=== PATIENT | female | born 1960 | race Hispanic/Latino ===

== ENCOUNTER 2017-10-31 19:38 | Emergency (ER) | payer OTHER, SELFPAY ==
[~2017-10-31 19:38] MED LIST: ACET1TAB12 PO; CITA-107 PO; LEVO500T2 PO; LISI40TA4 PO; MIRT15TA6 PO
[2017-10-31] MEDS ORDERED: HYDROCODONE/ACETAMINOPHEN 7.5/325 MG 15 ML UDCUP ONE (20:19)
[2017-10-31 20:33] LABS: BASOPHILS % (AUTO) 0.2 % (0.0-5.0); EOSINOPHILS % (AUTO) 0.8 % (0.0-8.0); HEMATOCRIT 39.3 % (36-48); LYMPHOCYTES % (AUTO) 5.1 % (21.0-51.0); MEAN CORPUSCULAR HEMOGLOBIN 30.9 pg (27.0-33.0); MEAN CORPUSCULAR HGB CONC 35.2 g/dL (32.0-36.0); MEAN CORPUSCULAR VOLUME 87.8 fL (79-99); MONOCYTES % (AUTO) 4.5 % (3.0-13.0); NEUTROPHILS % (AUTO) 89.4 % (40.0-77.0); PLATELET COUNT (AUTO) 293 K/uL (130-400); RED BLOOD CELL COUNT(AUTO) 4.48 MIL/uL (4.00-5.50); RED CELL DISTRIBUTION WIDTH 18.7 % (11.0-15.5); WHITE BLOOD COUNT (AUTO) 6.8 K/uL (4.8-10.8)
[2017-10-31 21:16] LABS: ALBUMIN 3.4 g/dL (3.5-5.0); BILIRUBIN,TOTAL 0.4 mg/dL (0.2-1.0); TOTAL PROTEIN, SERUM 7.4 g/dL (6.0-8.3)
== END 2017-10-31 21:26 | disposition home or self-care (01) ==
LOC: EDH 19:38
DX: R07.89 Other chest pain (principal); R51 Headache; T45.1X5A Adverse effect of antineoplastic and immunosuppressive drugs, initial encounter; R11.0 Nausea; C18.9 Malignant neoplasm of colon, unspecified; I10 Essential (primary) hypertension; Y92.89 Other specified places as the place of occurrence of the external cause
CPT/HCPCS: 36415; 70450; 72125; 80053; 85025

== ENCOUNTER 2018-04-24 11:10 | Emergency (ER) | payer OTHER ==
[2018-04-24] MEDS ORDERED: OXYCODONE/ACETAMIN 5/325MG TAB ONE (11:40)
== END 2018-04-24 13:00 | disposition home or self-care (01) ==
LOC: EDH 11:10
DX: R21 Rash and other nonspecific skin eruption (principal); I10 Essential (primary) hypertension; F41.9 Anxiety disorder, unspecified; Z85.038 Personal history of other malignant neoplasm of large intestine

== ENCOUNTER 2018-06-27 11:55 | Emergency (ER) | payer OTHER ==
[2018-06-27] MEDS ORDERED: ASPIRIN 325 MG TABLET ONE (12:21)
[2018-06-27 12:29] LABS: BASOPHILS % (AUTO) 0.7 % (0.0-5.0); EOSINOPHILS % (AUTO) 1.6 % (0.0-8.0); HEMATOCRIT 39.5 % (36-48); LYMPHOCYTES % (AUTO) 23.6 % (21.0-51.0); MEAN CORPUSCULAR HEMOGLOBIN 28.9 pg (27.0-33.0); MEAN CORPUSCULAR HGB CONC 32.9 g/dL (32.0-36.0); MEAN CORPUSCULAR VOLUME 87.9 fL (79-99); MONOCYTES % (AUTO) 3.4 % (3.0-13.0); NEUTROPHILS % (AUTO) 70.7 % (40.0-77.0); NUCLEATED RED BLOOD CELLS 0.1 % (0.0-0.19); PLATELET COUNT (AUTO) 236 K/uL (130-400); RED CELL DISTRIBUTION WIDTH 19.3 % (11.0-15.5); WHITE BLOOD COUNT (AUTO) 2.8 K/uL (4.8-10.8)
[2018-06-27] MEDS ORDERED: SODIUM CHLORIDE 0.9% 1000ML 1,000 ML IV ONE (12:36)
[2018-06-27 12:39] LABS: INR 0.91 (0.85-1.15); PROTHROMBIN TIME 9.6 SEC (9.6-11.6)
[2018-06-27 13:00] LABS: CREATININE 0.8 mg/dL (0.5-1.5); POTASSIUM 3.8 mmol/L (3.5-5.1)
[2018-06-27 13:05] LABS: ALBUMIN 3.2 g/dL (3.5-5.0); BILIRUBIN,TOTAL 0.4 mg/dL (0.2-1.0); TOTAL PROTEIN, SERUM 7.2 g/dL (6.0-8.3)
[2018-06-27 13:11] LABS: B-TYPE NATRIURETIC PEPTIDE 9 pg/mL (0-100)
[2018-06-27 13:15] LABS: EOSINOPHILS % (MANUAL) 3 % (1-6); LYMPHOCYTES % (MANUAL) 22 % (22-44); MAN.DIFF COMMENT-IMPRESSION MANUAL DIFFERENTIAL; MONOCYTES % (MANUAL) 2 % (2-9); PLATELET MORPHOLOGY COMMENT ADEQUATE; REACTIVE LYMPHOCYTES 1 % (0-0); SEGMENTED NEUTROPHILS % 72 % (40-70)
[2018-06-27] MEDS ORDERED: IOHEXOL-350 75 ML VIAL IV ONE (14:51)
== END 2018-06-27 17:06 | disposition home or self-care (01) ==
LOC: EDH 11:55
DX: R07.89 Other chest pain (principal); I10 Essential (primary) hypertension; F41.9 Anxiety disorder, unspecified; F32.9 Major depressive disorder, single episode, unspecified; Z90.49 Acquired absence of other specified parts of digestive tract
CPT/HCPCS: 36415; 71045; 71275; 80053; 82550; 83880; 84484 ×2; 85025; 85378; 85610; 85730; 93005 ×2; 99284; J7030; Q9967

== ENCOUNTER 2019-10-08 23:56 | Emergency (ER) | payer MEDICARE, OTHER ==
[2019-10-08] MEDS ORDERED: SODIUM CHLORIDE IRRIG SOLUTION 1,000 ML IR ONE (23:57)
[2019-10-09] MEDS ORDERED: ONDANSETRON HCL 4 MG/2 ML VIAL ONE (00:53)
[2019-10-09 01:07] LABS: BASOPHILS % (AUTO) 0.4 % (0.0-5.0); EOSINOPHILS % (AUTO) 0.4 % (0.0-8.0); HEMATOCRIT 38.1 % (36-48); LYMPHOCYTES % (AUTO) 19.1 % (21.0-51.0); MEAN CORPUSCULAR HEMOGLOBIN 30.1 pg (27.0-33.0); MEAN CORPUSCULAR HGB CONC 33.9 g/dL (32.0-36.0); MONOCYTES % (AUTO) 5.7 % (3.0-13.0); PLATELET COUNT (AUTO) 207 K/uL (130-400); RED BLOOD CELL COUNT(AUTO) 4.28 MIL/uL (4.00-5.50); WHITE BLOOD COUNT (AUTO) 7.4 K/uL (4.8-10.8)
[2019-10-09 01:17] LABS: POTASSIUM 3.4 mmol/L (3.5-5.1)
[2019-10-09 01:22] LABS: ALBUMIN 3.8 g/dL (3.5-5.0); BILIRUBIN,TOTAL 0.3 mg/dL (0.2-1.0); TOTAL PROTEIN, SERUM 7.6 g/dL (6.0-8.3)
== END 2019-10-09 02:11 | disposition home or self-care (01) ==
LOC: EDH 23:56
DX: A09 Infectious gastroenteritis and colitis, unspecified (principal); E86.9 Volume depletion, unspecified; I10 Essential (primary) hypertension; F32.9 Major depressive disorder, single episode, unspecified; F41.9 Anxiety disorder, unspecified; Z85.038 Personal history of other malignant neoplasm of large intestine
CPT/HCPCS: 36415; 80053; 85025; 96361; 96374; 99283; J2405

== ENCOUNTER 2021-04-09 21:14 | Emergency (ER) | payer OTHER ==
[~2021-04-09] VITALS: Ht 157.5 cm; Wt 86.2 kg
[~2021-04-09 21:14] MED LIST changes: -LISI40TA4 PO; +LISI40TA9 PO; +MIRT-22 PO; -MIRT15TA6 PO
[2021-04-09 21:59] LABS: APPEARANCE,URINE CLOUDY (CLEAR); BILIRUBIN,URINE NEGATIVE (NEGATIVE); COLOR,URINE YELLOW (YELLOW); GLUCOSE, URINE (UA) NEGATIVE (NEGATIVE); KETONES,URINE NEGATIVE (NEGATIVE); LEUKOCYTE ESTERASE ,URINE LARGE (NEGATIVE); NITRATE,URINE POSITIVE (NEGATIVE); OCCULT BLOOD,URINE MODERATE (NEGATIVE); PROTEIN,URINE 100 mg/dL (NEGATIVE)
[2021-04-09] MEDS ORDERED: METOCLOPRAMIDE 10 MG/2 ML VIAL IVP ONE (22:00)
[2021-04-09] MEDS ORDERED: ONDANSETRON 4MG INJ IVP ONE (22:00)
[2021-04-09] MEDS ORDERED: 0.9%NACL 1000ML 1,000 ML IV ONE (22:00)
[2021-04-09 22:15] LABS: BACTERIA,URINE Few /HPF (None Seen); SQUAMOUS EPITHELIAL CELL,UR Few /HPF (0-2); WBC,URINE 51-100 /HPF (0-1)
[2021-04-09 22:36] LABS: BASOPHILS % (AUTO) 0.2 % (0.0-5.0); HEMATOCRIT 39.5 % (36-48); LYMPHOCYTES % (AUTO) 4.6 % (21.0-51.0); MEAN CORPUSCULAR HEMOGLOBIN 29.4 pg (27.0-33.0); MEAN CORPUSCULAR HGB CONC 32.7 g/dL (32.0-36.0); MONOCYTES % (AUTO) 5.4 % (3.0-13.0); NEUTROPHILS % (AUTO) 89.5 % (40.0-77.0); PLATELET COUNT (AUTO) 201 K/uL (130-400); RED BLOOD CELL COUNT(AUTO) 4.39 MIL/uL (4.00-5.50); RED CELL DISTRIBUTION WIDTH 14.1 % (11.0-15.5)
[2021-04-09 22:55] LABS: CREATININE 1.2 mg/dL (0.5-1.5); POTASSIUM 3.8 mmol/L (3.5-5.1)
[2021-04-09] MEDS ORDERED: ONDA4TAB10 PO (22:58)
[2021-04-09] MEDS ORDERED: METO-296 PO (22:58)
[2021-04-09] MEDS ORDERED: DICY20TA2 PO (22:58)
[2021-04-09] MEDS ORDERED: CEPH500B PO (22:58)
[2021-04-09 22:59] LABS: ALBUMIN 3.4 g/dL (3.5-5.0); BILIRUBIN,TOTAL 0.6 mg/dL (0.2-1.0); TOTAL PROTEIN, SERUM 7.6 g/dL (6.0-8.3)
[2021-04-09] MEDS ORDERED: ACETAMINOPHEN 500 MG TABLET ONE (23:00)
[2021-04-09] MEDS ORDERED: LOPERAMIDE HCL 2 MG CAP PO ONE (23:00)
[2021-04-09] MEDS ORDERED: DICYCLOMINE HCL 20 MG TAB PO ONE (23:00)
[2021-04-09] MEDS ORDERED: CEFTRIAXONE 2GM VIAL IVP ONE (23:00)
[2021-04-09] MEDS ORDERED: 0.9%NACL 50ML 50 ML IV ONE (23:00)
[2021-04-10 00:43] VITALS: BP 124/74
== END 2021-04-10 00:47 | disposition home or self-care (01) ==
LOC: EDH 21:14
DX: N39.0 Urinary tract infection, site not specified (principal); E86.9 Volume depletion, unspecified; I10 Essential (primary) hypertension; Z79.899 Other long term (current) drug therapy
CPT/HCPCS: 36415; 74176; 80053; 81001; 83690; 84484; 85025; 87077; 87088; 87186; 96361; 96374; 96375; 99284; J0696; J2405; J2765; J7030

== ENCOUNTER → 2021-10-10 | Outpatient (CLI) | payer OTHER ==
[~2021-10-10] MED LIST changes: +CEPH500B PO; +DICY20TA2 PO; +METO-296 PO; +ONDA4TAB10 PO
== END | disposition home or self-care (01) ==
LOC: RAH 10:21
PROVIDERS: ATTEND Family Medicine
DX: Z12.31 Encounter for screening mammogram for malignant neoplasm of breast (principal)
CPT/HCPCS: 77067

== ENCOUNTER 2022-11-14 01:32 | Emergency (ER) | payer OTHER ==
[~2022-11-14] VITALS: Ht 160 cm; Wt 87.5 kg
[2022-11-14 01:37] VITALS: BP 167/88
[2022-11-14] MEDS ORDERED: SULFAMETHOX-TMP DS 800/160 TAB PO SCH (02:00)
[2022-11-14] MEDS ORDERED: PHENAZOPYRIDINE HCL 200 MG TABLET PO ONE (02:00)
[2022-11-14] MEDS ORDERED: SULF1TAB42 PO (02:06)
[2022-11-14] MEDS ORDERED: PHEN-847 PO (02:06)
[2022-11-14 02:35] LABS: APPEARANCE,URINE CLEAR (CLEAR); BILIRUBIN,URINE NEGATIVE (NEGATIVE); COLOR,URINE COLORLESS (YELLOW); GLUCOSE, URINE (UA) NEGATIVE (NEGATIVE); KETONES,URINE NEGATIVE (NEGATIVE); LEUKOCYTE ESTERASE ,URINE 500 Leu/uL (NEGATIVE); NITRATE,URINE NEGATIVE (NEGATIVE); OCCULT BLOOD,URINE MODERATE (NEGATIVE); PROTEIN,URINE NEGATIVE (NEGATIVE); UROBILINOGEN,URINE 0.2 mg/dL (0.2-1.0)
[2022-11-14 03:11] LABS: BACTERIA,URINE RARE /HPF (None Seen); MUCUS,URINE RARE LPF (None Seen); RBC,URINE 0-1 /HPF (0-1)
== END 2022-11-14 02:26 | disposition home or self-care (01) ==
LOC: EDH 01:32
DX: N39.0 Urinary tract infection, site not specified (principal); I10 Essential (primary) hypertension; Z79.899 Other long term (current) drug therapy
CPT/HCPCS: 81001; 87088

== ENCOUNTER 2022-11-16 22:04 | Emergency (ER) | payer OTHER ==
[~2022-11-16] VITALS: Ht 160 cm; Wt 88.0 kg
[~2022-11-16 22:04] MED LIST changes: +PHEN-847 PO; +SULF1TAB42 PO
[2022-11-17 01:33] LABS: APPEARANCE,URINE CLOUDY (CLEAR); BILIRUBIN,URINE NEGATIVE (NEGATIVE); COLOR,URINE DARK-YELLOW (YELLOW); GLUCOSE, URINE (UA) NEGATIVE (NEGATIVE); KETONES,URINE NEGATIVE (NEGATIVE); LEUKOCYTE ESTERASE ,URINE 500 Leu/uL (NEGATIVE); NITRATE,URINE 1+ (NEGATIVE); OCCULT BLOOD,URINE NEGATIVE (NEGATIVE); PROTEIN,URINE 10 mg/dL (NEGATIVE); UROBILINOGEN,URINE 0.2 mg/dL (0.2-1.0)
[2022-11-17 01:39] LABS: BACTERIA,URINE RARE /HPF (None Seen); MUCUS,URINE RARE LPF (None Seen); WBC,URINE 51-100 /HPF (0-1)
[2022-11-17] MEDS ORDERED: MORPHINE 4 MG SYG IVP ONE (02:30)
[2022-11-17] MEDS ORDERED: FAMOTIDINE 20MG TAB PO ONE (02:30)
[2022-11-17] MEDS ORDERED: METOCLOPRAMIDE 10 MG/2 ML VIAL IVP ONE (02:30)
[2022-11-17] MEDS ORDERED: LACTATED RINGERS 1000ML 1,000 ML IV ONE (02:30)
[2022-11-17 03:31] LABS: BASOPHILS % (AUTO) 0.4 % (0.0-5.0); HEMATOCRIT 38.5 % (36-48); LYMPHOCYTES % (AUTO) 18.3 % (21.0-51.0); MEAN CORPUSCULAR HEMOGLOBIN 28.9 pg (27.0-33.0); MEAN CORPUSCULAR HGB CONC 32.5 g/dL (32.0-36.0); MEAN CORPUSCULAR VOLUME 88.9 fL (79-99); MONOCYTES % (AUTO) 5.9 % (3.0-13.0); NEUTROPHILS % (AUTO) 74.1 % (40.0-77.0); PLATELET COUNT (AUTO) 234 K/uL (130-400); RED BLOOD CELL COUNT(AUTO) 4.33 MIL/uL (4.00-5.50); RED CELL DISTRIBUTION WIDTH 14.4 % (11.0-15.5); WHITE BLOOD COUNT (AUTO) 7.9 K/uL (4.8-10.8)
[2022-11-17 03:41] LABS: CREATININE 1.5 mg/dL (0.5-1.5)
[2022-11-17 03:45] LABS: ALBUMIN 3.5 g/dL (3.5-5.0); TOTAL PROTEIN, SERUM 7.5 g/dL (6.0-8.3)
[2022-11-17] MEDS ORDERED: PHENAZOPYRIDINE HCL 200 MG TABLET PO ONE (04:00)
[2022-11-17] MEDS ORDERED: CEFAZOLIN SODIUM 2 GM VIAL IVPB PRN (04:00)
[2022-11-17] MEDS ORDERED: CEPH500B PO (04:20)
[2022-11-17] MEDS ORDERED: METO-296 PO (04:20)
[2022-11-17] MEDS ORDERED: PHEN-847 PO (04:20)
[2022-11-17 04:22] VITALS: BP 132/74
== END 2022-11-17 04:34 | disposition home or self-care (01) ==
LOC: EDH 22:04
DX: N39.0 Urinary tract infection, site not specified (principal); I10 Essential (primary) hypertension; Z79.899 Other long term (current) drug therapy
CPT/HCPCS: 99285; 96374; 96361; 96375; 84484; 80053; 83690; 85025; 81001; 36415; 74176; 71045; 93005; J7120; J2270; J2765

== ENCOUNTER → 2023-03-29 | Outpatient (CLI) | payer OTHER ==
[2023-03-29 12:01] LABS: BASOPHILS # (AUTO) 0.04 K/uL (0.00-0.20); BASOPHILS % (AUTO) 0.7 % (0.0-5.0); EOSINOPHILS # (AUTO) 0.06 K/uL (0.00-0.70); HEMATOCRIT 39.3 % (36-48); IMMATURE GRANULOCYTE ABSOLUTE 0.02 K/uL (0-1); LYMPHOCYTES # (AUTO) 1.2 K/uL (1.0-4.8); LYMPHOCYTES % (AUTO) 20.1 % (21.0-51.0); MEAN CORPUSCULAR HEMOGLOBIN 29.2 pg (27.0-33.0); MEAN CORPUSCULAR HGB CONC 32.3 g/dL (32.0-36.0); MEAN CORPUSCULAR VOLUME 90.3 fL (79-99); MONOCYTES # (AUTO) 0.3 K/uL (0.1-1.0); MONOCYTES % (AUTO) 5.6 % (3.0-13.0); NEUTROPHILS # (AUTO) 4.1 K/uL (1.8-7.7); NEUTROPHILS % (AUTO) 72.3 % (40.0-77.0); PLATELET COUNT (AUTO) 213 K/uL (130-400); RED BLOOD CELL COUNT(AUTO) 4.35 MIL/uL (4.00-5.50); RED CELL DISTRIBUTION WIDTH 14.4 % (11.0-15.5); WHITE BLOOD COUNT (AUTO) 5.7 K/uL (4.8-10.8)
[2023-03-29 12:10] LABS: ALBUMIN 3.6 g/dL (3.5-5.0); BILIRUBIN,TOTAL 0.3 mg/dL (0.2-1.0); CREATININE 0.9 mg/dL (0.5-1.5); POTASSIUM 4.4 mmol/L (3.5-5.1); TOTAL PROTEIN, SERUM 7.2 g/dL (6.0-8.3)
== END | disposition home or self-care (01) ==
LOC: LAB 10:49
PROVIDERS: ATTEND Surgery
DX: R10.32 Left lower quadrant pain (principal)
CPT/HCPCS: 36415; 80053; 85025

== ENCOUNTER → 2023-04-06 | Outpatient (CLI) | payer OTHER ==
[~2023-04-06] MED LIST changes: +IOHEXOL-350 75 ML VIAL IV ONE
== END | disposition home or self-care (01) ==
LOC: RAH 07:54
PROVIDERS: ATTEND Surgery
DX: N28.1 Cyst of kidney, acquired (principal); R10.32 Left lower quadrant pain
CPT/HCPCS: 74177; Q9967

== ENCOUNTER → 2023-08-31 | Outpatient (CLI) | payer OTHER ==
[~2023-08-31] MED LIST changes: -IOHEXOL-350 75 ML VIAL IV ONE
== END | disposition home or self-care (01) ==
LOC: RAH 15:02
PROVIDERS: ATTEND Family Medicine
DX: Z12.31 Encounter for screening mammogram for malignant neoplasm of breast (principal)
CPT/HCPCS: 77067

== ENCOUNTER 2024-01-29 00:31 | Emergency (ER) | payer OTHER ==
[~2024-01-29] VITALS: Ht 157.5 cm; Wt 88.5 kg
[~2024-01-29 00:31] MED LIST changes: +ONDA-243 PO; -ONDA4TAB10 PO
[2024-01-29 01:22] LABS: APPEARANCE,URINE CLEAR (CLEAR); BILIRUBIN,URINE NEGATIVE (NEGATIVE); COLOR,URINE LIGHT-YELLOW (YELLOW); GLUCOSE, URINE (UA) NEGATIVE (NEGATIVE); KETONES,URINE NEGATIVE (NEGATIVE); LEUKOCYTE ESTERASE ,URINE NEGATIVE Leu/uL (NEGATIVE); NITRATE,URINE NEGATIVE (NEGATIVE); OCCULT BLOOD,URINE MODERATE (NEGATIVE); PH,URINE 5.5 (5.0-8.0); PROTEIN,URINE 10 mg/dL (NEGATIVE); UROBILINOGEN,URINE 0.2 mg/dL (0.2-1.0)
[2024-01-29 01:30] LABS: ADD UA MICROSCOPIC YES
[2024-01-29 01:33] LABS: MUCUS,URINE RARE LPF (None Seen); SQUAMOUS EPITHELIAL CELL,UR RARE /HPF (0-2); WBC,URINE 0-1 /HPF (0-1)
[2024-01-29] MEDS: IBUPROFEN 600 MG TABLET PO ONE (01:40)
[2024-01-29] MEDS: acetaMINOPHEN 500 MG TABLET PO ONE (01:40)
[2024-01-29] MEDS: DIPH,PERTUSS(ACELL),TET VAC/PF 0.5 ML VIAL IM ONE (01:42)
[2024-01-29] MEDS ORDERED: IBUP-2070 PO (02:47)
[2024-01-29 03:17] VITALS: BP 129/74; PULSE 70; RESP 16; TEMP 98.4; O2SAT 100
== END 2024-01-29 03:19 | disposition home or self-care (01) ==
LOC: EDH 00:31
DX: S80.02XA Contusion of left knee, initial encounter (principal); S60.222A Contusion of left hand, initial encounter; S90.31XA Contusion of right foot, initial encounter; I10 Essential (primary) hypertension; M19.90 Unspecified osteoarthritis, unspecified site; Z23 Encounter for immunization; Z90.49 Acquired absence of other specified parts of digestive tract; Z79.899 Other long term (current) drug therapy; W01.0XXA Fall on same level from slipping, tripping and stumbling without subsequent striking against object, initial encounter; Y93.89 Activity, other specified; Y92.89 Other specified places as the place of occurrence of the external cause; Y99.8 Other external cause status
CPT/HCPCS: 29105; 73080; 73090; 73110; 73130; 73564; 81001; 90471; 90715